=== PATIENT | male | born 1985 | race Caucasian/White ===

== ENCOUNTER 2017-08-20 13:26 | Emergency (ER) | payer OTHER ==
[2017-08-20 14:19] VITALS: BP 152/81
[2017-08-20] MEDS ORDERED: Cephalexin CAP* 500 MG PO ONE (14:54)
[2017-08-20] MEDS ORDERED: Tetan/Diph/Pertus SYR(Tdap)* 0.5 ML SYR(BOOSTRIX) use SYR IM ONE (14:54)
--- NOTE | 2017-08-20 15:18 | RAD ---
Indication: Foreign body, trauma. 2 views of the left hand demonstrates a radiopaque foreign body in the volar aspect of the hand between the first and second digits. IMPRESSION: RADIOPAQUE FOREIGN BODY IS IDENTIFIED.
--- NOTE | 2017-08-20 15:18 | ED ---
Upper Extremity Pain - HPI Summary HPI Summary: 32 yr old with left hand injury. Onset today when at work, pounding on bearing and a piece of metal flew off and went into his left hand. He sustained a 1 cm laceration on the volar surface left index finger at the proximal phalynx level. He feels a FB sensation in the 2nd webspace. Denies numbness. He was pounding with a 4 pound steel hammer very hard when the metal flew off the bearing. So this is was a relatively high energy injury. - History of Current Complaint Chief Complaint: [place] Stated Complaint: WC LEFT HAND INJURY Time Seen by Provider: 08/20/17 14:46 - Allergies/Home Medications Allergies/Adverse Reactions: Allergies Allergy/AdvReac Type Severity Reaction Status Date / Time Sulfa (Sulfonamide Allergy Unknown Verified 08/20/17 14:16 Antibiotics) Reaction Details Home Medications: Home Medications NK [No Home Medications Reported] 08/20/17 [History Confirmed 08/20/17] PMH/Surg Hx/FS Hx/Imm Hx - Surgical History Surgery Procedure, Year, and Place: APPENDECTOMY. HERNIA REPAIR Infectious Disease History: No Infectious Disease History: Denies: Traveled Outside the [place] in Last 30 Days - Family History Known Family History: Positive: None - Social History Occupation: Employed Full-time Alcohol Use: Occasionally Substance Use Type: Reports: None Smoking Status (MU): Heavy Every Day Tobacco Smoker Amount Used/How Often: 1 PPD Have You Smoked in the Last Year: Yes Review of Systems Constitutional: Negative Positive: Other - injury to left index finger All Other Systems Reviewed And Are Negative: Yes Physical Exam Triage Information Reviewed: Yes Vital Signs On Initial Exam: Initial Vitals Temp Pulse Resp BP Pulse Ox 99.0 F 82 15 152/81 100 08/20/17 14:14 08/20/17 14:14 08/20/17 14:14 08/20/17 14:14 08/20/17 14:14 Vital Signs Reviewed: Yes Appearance: Positive: Well-Appearing, No Pain Distress Skin: Positive: Warm, Skin Color Reflects Adequate Perfusion, Other - 1 cm laceration volar proximal phalynx Head/Face: Positive: Normal Head/Face Inspection ENT: Positive: Normal ENT inspection Neck: Positive: Nontender Respiratory/Lung Sounds: Positive: Other - normal effort Cardiovascular: Positive: Pulses are Symmetrical in both Upper and Lower Extremities - radial intact Abdomen Description: Negative: Distended Musculoskeletal: Positive: Strength/ROM Intact, Other - he has intact flexor superficialis stength, intact profundus strength index finger. But he says something feels strange when engaging the superficialis tendon in the index finger and the laceration is over this area. His digital nerves are grossly intact in sensation. There is a 1 cm laceration that is very well approximated and good visualization of the tissues deep is not possible. Tendon not visualized. Neurological: Positive: Sensory/Motor Intact, Alert, Oriented to Person Place, Time, CN Intact II-III Psychiatric: Positive: Normal - [place] Coma Scale Best Eye Response: 4 - Spontaneous Best Motor Response: 6 - Obeys Commands Best Verbal Response: 5 - Oriented Coma Scale Total: 15 Diagnostics - Vital Signs Vital Signs Temp Pulse Resp BP Pulse Ox 08/20/17 14:14 99.0 F 82 15 152/81 100 - Laboratory Lab Statement: Any lab studies that have been ordered have been reviewed, and results considered in the medical decision making process. Course/Dx - Course Course Of Treatment: 32 yr old with obvious FB in 2nd web space with the entry point the volar 2nd proximal phalynx. This object obviously was moving at a pretty good velocity given size of it and penetration. Wound irrigated with 300 cc of NS, and sterile dressing applied. Tetanus prophylaxis given, and keflex dose given. he understands that he is to go to [facility] in [place], [place] to the ER for hand surgery to further evaluate his hand for this penetrating injury. - Diagnoses Provider Diagnoses: Foreign body hand, Laceration of hand, Injury of flexor tendon of left hand, Hypertension - Physician Notifications Discussed Care of Patient With: transfer center [facility] - information given regardin patient and need for hand surgery to see. Time Discussed With Above Provider: 15:47 Discharge - Sign-Out/Discharge Documenting (check all that apply): Discharge/Admit/Transfer - Discharge Plan Condition: Good Disposition: [facility] Patient Education Materials: Soft Tissue Foreign Body (ED), Tendon Repair (DC) , Laceration (ED), Hypertension (ED) Referrals: No Primary Care Phys,NOPCP [Primary Care Provider] - [facility] [Outside] - 2 Days Additional Instructions: Emergency Department, [facility] Map & directions [facility] [place] [address] You need to go to the ER in [place] at the above address to have hand surgery see your injury for further care. You need your flexor tendon further evaluated and also consultation for the further treatment for the rather large metal foreign body that traveled through part of your hand. There can be hidden injuries that a specialist can cloth picker. Do not delay going. Go after leaving this urgent care this afternoon. - Billing Disposition and Condition Condition: GOOD Disposition: EMTALA
== END 2017-08-20 15:48 | disposition short-term general hospital (02) ==
LOC: UCCORT 13:26
DX: S61.422A Laceration with foreign body of left hand, initial encounter (principal); S66.822A Laceration of other specified muscles, fascia and tendons at wrist and hand level, left hand, initial encounter; I10 Essential (primary) hypertension; F17.210 Nicotine dependence, cigarettes, uncomplicated; Z23 Encounter for immunization; Z88.2 Allergy status to sulfonamides; W20.8XXA Other cause of strike by thrown, projected or falling object, initial encounter; Y92.9 Unspecified place or not applicable; Y99.0 Civilian activity done for income or pay
CPT/HCPCS: 90471; 90715; 99202; A9270-GY; G0463

== ENCOUNTER 2018-10-31 13:22 | Emergency (ER) | payer OTHER ==
[2018-10-31 14:05] VITALS: BP 119/58
--- NOTE | 2018-10-31 14:07 | UC ---
Laceration HPI - History Of Current Complaint Chief Complaint: UCUpperExtremity Stated Complaint: WC-LT SMALL FINGER INJURY Time Seen by Provider: 10/31/18 14:06 Pain Intensity: 3 - Allergies/Home Medications Allergies/Adverse Reactions: Allergies Allergy/AdvReac Type Severity Reaction Status Date / Time Sulfa (Sulfonamide Allergy Unknown Verified 10/31/18 14:05 Antibiotics) Reaction Details PMH/Surg Hx/FS Hx/Imm Hx - Surgical History Surgical History: Yes Surgery Procedure, Year, and Place: APPENDECTOMY. HERNIA REPAIR - Family History Known Family History: Positive: None - Social History Alcohol Use: Occasionally Substance Use Type: None Smoking Status (MU): Heavy Every Day Tobacco Smoker Amount Used/How Often: 1 PPD Have You Smoked in the Last Year: Yes Physical Exam Vital Signs: Initial Vital Signs Temp 97.9 F 10/31/18 13:54 Pulse 86 10/31/18 13:54 Resp 16 10/31/18 13:54 BP 119/58 10/31/18 13:54 Pulse Ox 100 10/31/18 13:54 Discharge - Discharge Plan Referrals: No Primary Care Phys,NOPCP [Primary Care Provider] -
--- NOTE | 2018-10-31 14:18 | UC ---
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 HE NOTES IT DID BLEED RIGHT AWAY BUT THAT STOPPED WITH PRESSURE. LAST TETANUS WAS IN 2018. NO LIMITED ROM BUT PT NOTES THE SKIN IS MISSING. - History of Current Complaint Chief Complaint: UCUpperExtremity Stated Complaint: WC-LT SMALL FINGER INJURY Time Seen by Provider: 10/31/18 14:06 Hx Obtained From: Patient Onset/Duration: Sudden Onset Pain Intensity: 3 Associated Signs & Symptoms: Negative: Fever - Allergy/Home Medications Allergies/Adverse Reactions: Allergies Allergy/AdvReac Type Severity Reaction Status Date / Time Sulfa (Sulfonamide Allergy Unknown Verified 10/31/18 14:05 Antibiotics) Reaction Details PMH/Surg Hx/FS Hx/Imm Hx Previously Healthy: Yes - Surgical History Surgical History: Yes Surgery Procedure, Year, and Place: APPENDECTOMY. HERNIA REPAIR - Family History Known Family History: Positive: None - Social History Occupation: Employed Full-time Alcohol Use: Occasionally Substance Use Type: None Smoking Status (MU): Heavy Every Day Tobacco Smoker Amount Used/How Often: 1 PPD Have You Smoked in the Last Year: Yes - Immunization History Hx Tetanus, Diphtheria Vaccination: Yes Review of Systems All Other Systems Reviewed And Are Negative: No Skin: Positive: Other - AVULSED L 5TH FINGER Musculoskeletal: Negative: Decreased ROM Neurological: Negative: Weakness, Numbness Physical Exam Triage Information Reviewed: Yes Appearance: Well-Appearing Vital Signs: Initial Vital Signs Temp 97.9 F 10/31/18 13:54 Pulse 86 10/31/18 13:54 Resp 16 10/31/18 13:54 BP 119/58 10/31/18 13:54 Pulse Ox 100 10/31/18 13:54 Vital Signs Reviewed: Yes Cardiovascular: Positive: RRR Musculoskeletal: Positive: Other: - L HAND: DORSAL TIP OF THE 5TH FINGER IS AVULSED (1.3CMX1.0CM). THERE IS A 2-3MM AREA OF BONE EXPOSED IN THE CENTER. NO ACTIVE BLEEDING. NO FB'S. S/V/M INTACT UP TO THE POINT OF INJURY. REST OF HAND IS NOT INJURED. Neurological: Positive: Alert Psychological: Positive: Age Appropriate Behavior Skin Exam: Normal Diagnostics - Radiology No standard instances Radiology Interpretation Completed By: Radiologist - IMPRESSION: SOFT TISSUE INJURY AND SMALL CHIP FRACTURE OF THE TUFT OF THE DISTAL PHALANX. Course/Dx - Course Course Of Treatment: WOUND IRRIGATED AT TRIAGE BY NURSING. CASE D/W DR SHEN INCLUDING HX, PE OF 1.0X1.3CM SKIN AVULSION WITH 2-3MM BONE EXPOSURE AND UNDERLYING CHIP FX. SHE REQUEST CLEAN VERY WELL AND DRESSING [employer]. PT TO LEAVING THAT DRESSING IN PLACE UNTIL HIS F/U. HE IS TO CALL TODAY TO BE SEEN THIS WEDNESDAY. SHE ALSO REQUEST I TX HIS WITH KEFLEX. PROCEDURE BY THIS PA: ADDITIONAL WOUND IRRIGATED WITH 500ML STERILE NACL UNDER PRESSURE. SITE COVERED WITH THICK LAYER ANTIBIOTIC OINTMENT FOLLOWED BY [employer] THEN NON STICK DRESSING HELD IN PLACE WITH BULKY TUBE GAUZE. PT TOLERATED WELL. HE WAS ADVISED TO LEAVE THIS IN PLACE UNTIL THE F/U. - Diagnoses Provider Diagnosis: Avulsion of skin of finger, Fracture, finger, distal phalanx, open Discharge - Sign-Out/Discharge Documenting (check all that apply): Patient Departure All imaging exams completed and their final reports reviewed: Yes - Discharge Plan Condition: Stable Disposition: HOME Prescriptions: Cephalexin CAP* [Keflex CAP*] 500 mg PO TID 10 Days #30 cap Patient Education Materials: Hand Fracture (ED), Skin Avulsion (ED) Forms: *Work Release Referrals: Enedina Shen MD [Medical Doctor] - Additional Instructions: CALL TODAY TO BE SEEN THIS WEDNESDAY(11/02/18) PER DR SHEN. LEAVE THIS DRESSING IN PLACE UNTIL THE FOLLOW UP APPOINTMENT - Billing Disposition and Condition Condition: STABLE Disposition: Home
[2018-10-31] MEDS ORDERED: Cephalexin CAP* 500 MG PO ONE (14:46)
[2018-10-31] MEDS ORDERED: Ibuprofen ADULT LIQ* 600 MG/30 ML UDC PO ONE (14:49)
== END 2018-10-31 15:02 | disposition home or self-care (01) ==
LOC: UCCORT 13:22
DX: S61.217A Laceration without foreign body of left little finger without damage to nail, initial encounter (principal); S62.637B Displaced fracture of distal phalanx of left little finger, initial encounter for open fracture; W23.0XXA Caught, crushed, jammed, or pinched between moving objects, initial encounter; Y92.89 Other specified places as the place of occurrence of the external cause; Y99.8 Other external cause status; Z88.2 Allergy status to sulfonamides; F17.210 Nicotine dependence, cigarettes, uncomplicated
CPT/HCPCS: 73140; 99212; A9270-GY; G0463